=== PATIENT | male | born 1985 | race Caucasian/White ===

== ENCOUNTER 2019-07-01 03:26 | Emergency (ER) | payer BC ==
[~2019-07-01] VITALS: Ht 190.5 cm; Wt 101.2 kg
[2019-07-01 03:51] VITALS: Ht 190.5 cm; Wt 101.2 kg
[2019-07-01 05:48] VITALS: BP 145/53
== END 2019-07-01 05:48 | disposition home or self-care (01) ==
LOC: ED 03:26
DX: F10.129 Alcohol abuse with intoxication, unspecified (principal)